=== PATIENT | male | born 1965 | race Native Hawaiian/Other Pacific Islander ===

== ENCOUNTER 2023-04-24 12:14 | Emergency (ER) | payer MEDICAID, SELFPAY ==
--- NOTE | 2023-04-24 12:18 | ED.GENADULT ---
HPI - General Adult General Chief complaint: General Medical Stated complaint: Needs medication refill Time Seen by Provider: 04/24/23 12:33 Source: patient Mode of arrival: ambulatory Limitations: no limitations History of Present Illness HPI narrative: 58 year old male hx of diabetes presents requesting a medication refil for Lantus 18 units at bedtime. Patient tells me he just came from [place] 8 days ago and forgot his lantus at home has all his other diabetic meds. Patient feels a little shakey. No other compalints at this time. Denies nausea, vomiting, abd pain, cp, sob, headache, vision changes, dizziness. Related Data Previous Rx's Medication Instructions Recorded insulin glargine 100 unit/mL 15 unit (0.15 mL) subcut QPM 30 04/24/23 subcutaneous solution (Lantus days #4.5 mL U-100 Insulin) Allergies Allergy/AdvReac Type Severity Reaction Status Date / Time No Known Allergies Allergy Verified 04/24/23 12:20 Review of Systems Review of Systems: Constitutional : No Weight loss, No Fever, No Chills, No Fatigue, No Malaise ENT/Mouth : No sore throat, No Rhinorrhea Eyes: No Eye Pain, No Swelling, No Redness Cardiovascular : No Chest Pain, No SOB, No Dyspnea on Exertion, No Orthopnea, No Edema, No Palpitations Respiratory : No Cough, No Sputum, No Wheezing Gastrointestinal : No Nausea, No Vomiting, No Diarrhea, No Constipation, No abdominal Pain, No Hematochezia, No Melena Genitourinary : No Dysuria, No Urinary Frequency, No Hematuria, Musculoskeletal : No joint pain, No Myalgias, No Joint Swelling Skin : No Skin Lesions, No rash Neuro : No Weakness, No Numbness, No Dizziness, No Headache Psych : No Anxiety/Panic, No Depression All other systems reviewed and are negative Yes all other systems are reviewed and are negative [facility] Past Medical History Attestation statement: The following information was validated with the patient. Source: old records reviewed and nursing notes reviewed Social History Social History Advance Directives: No Advance Directives Information Provided: No Physical Exam ED Vital Signs: Vital Signs - 24 hr 04/24/23 12:21 Temperature 98 F Pulse Rate 69 Respiratory Rate 18 Blood Pressure 118/74 Pulse Oximetry 98 Oxygen Delivery Method Room Air BMI result Body Mass Index 24.7 vss Appearance: Alert.? Oriented X3.? No acute distress.? Head: Normocephalic, atraumatic, no step-offs or deformities Eyes: Pupils equal, round and reactive to light.? CVS: Normal heart rate and rhythm.? Pulses normal.? Respiratory: No respiratory distress.? Breath sounds normal.? Abdomen: Soft and nontender.? Skin: Skin warm and dry.? Normal skin color.? Normal skin turgor.? Extremities: No lower extremity edema.? No calf ttp. 5/5 strength to bilateral upper and lower extremities Neuro: Oriented X 3.? No motor deficit.? No sensory deficit. CN 2-12 intact Course Reevaluation(s) Reevaluation #1: Patients CBC wnl. Chemistry unremarkable. No anion gap or electrolyte abnormalities. Normal beta hydroxybutyrate. Unlikely DKA, HHS. Likely patient just needs his meds. Peak the phone patient's pharmacist from [place] who tells me patient has Lantus 100, 15 units at bedtime. This was confirmed with pharmacy. Educated patient on diagnosis and treatment plan, answered all question, patient verbalizes understanding. At this time patient will be discharged home, advised to return with new or worsening symptoms. Educated on worrisome signs and symptoms and when to return. At this time I feel comfortable discharge home. Time: 13:19 Medical Decision Making Medical Decision Making MDM Narrative: [id number] 58 yo M presents requesting medication refill. PE benign No medical complaints. Normal physical exam Plan- refil meds Differential Diagnosis Differential Diagnoses: The differential diagnosis associated with the presentation includes No medical complaints. Normal physical exam Admission/Observation Consideration of admission/observation: Escalation of care including admission/observation considered Not indicated Lab Data 04/24/23 12:51 04/24/23 12:51 Labs: Lab Results 04/24/23 04/24/23 04/24/23 Range/Units 12:26 12:51 12:51 WBC 3.7 L (4.8-10.8) X10*3/uL RBC 4.93 (4.60-5.80) X10*6/uL Hgb 13.9 L (14.0-18.0) g/dl Hct 41.4 L (42.0-52.0) % MCV 84.0 (80.0-98.0) fL MCH 28.2 (27.0-33.0) pg MCHC 33.6 (31.0-36.0) g/dl RDW 12.6 (11.0-16.0) % Plt Count 160 (160-400) X10*3/uL MPV 9.6 (9.4-12.4) fL Immature Gran % (Auto) 0.0 (0.0-0.4) % Neut % (Auto) 64.8 (45-73) % Lymph % (Auto) 23.1 (20-40) % Gilchrist % (Auto) 9.4 (2-11) % Eos % (Auto) 1.9 (0-4) % Baso % (Auto) 0.8 (0-2) % Lymph # (Auto) 0.9 L (1.2-4.9) X10*3/uL Gilchrist # (Auto) 0.4 (0.1-1.2) X10*3/uL Eos # (Auto) 0.1 (0.0-0.4) X10*3/uL Baso # (Auto) 0.0 (0.0-0.2) X10*3/uL Abs Immat Gran (auto) 0.00 (0.00-0.03) X10*3/uL Absolute Neuts (auto) 2.4 (2.0-8.3) x10*3/uL Absolute Nucleated RBC 0.000 (0.0-0.012) X10*3/uL Nucleated RBC % (auto) 0.0 (0.0-0.2) /100WBC Sodium 138 (135-145) mmol/L Potassium 4.1 (3.3-5.1) mmol/L Chloride 105 (96-108) mmol/L Carbon Dioxide 26 (22-29) mmol/L Anion Gap 11 L (12-20) BUN 10 (9-16) mg/dL Creatinine 0.85 (0.5-1.4) mg/dL Estim Creat Clear Calc 83.3 Estimated GFR > 60 POC Glucose 204 H (60-115) mg/dL Random Glucose 213 H (60-115) mg/dL Calcium 9.6 (8.4-10.2) mg/dL Magnesium 2.0 (1.6-2.6) mg/dL Total Bilirubin 0.4 (0.0-1.0) mg/dL AST 15 (5-37) U/L ALT 17 (0-40) U/L Alkaline Phosphatase 62 (39-117) U/L Total Protein 6.9 (6.5-8.0) g/dL Albumin 4.2 (3.5-5.0) g/dL Beta-Hydroxybutyrate 0.05 (0.02-0.27) mmol/L Core Measures AMI core measures followed: Yes Measure exclusions: not indicated Critical Care Time Critical Care Time Critical Care Time: No Discharge Plan Discharge Clinical Impression: Medication refill, Diabetes Patient Disposition: Home, Self-Care Instructions: Medicine Refill (ED), Diabetes and Nutrition (ED), Type 2 Diabetes Management for Adults (ED) Additional Instructions: Take your medications as prescribed. If you were prescribed antibiotics today, it is important that you take your medication to their entirety, do not skip any doses, do not finish them early. Follow-up with your primary care provider this week. Return to the emergency department with new or worsening symptoms. In case of emergency call 911 Prescriptions: New insulin glargine [Lantus U-100 Insulin] 100 unit/mL solution 15 unit subcut QPM 30 Days Qty: 4.5 3RF Referrals: Physician,Xenia J [Primary Care Provider] - 2 days
[2023-04-24 12:21] VITALS: BP 118/74; PULSE 69; RESP 18; TEMP 36.6; O2SAT 98; BMI 24.7
== END 2023-04-24 13:46 | disposition home or self-care (01) ==
PROVIDERS: Emergency Provider Emergency Medicine Emergency Medical Services
DX: Z76.0 Encounter for issue of repeat prescription (principal); Z91.148 Patient's other noncompliance with medication regimen for other reason; Z79.899 Other long term (current) drug therapy
CPT/HCPCS: 36415; 80053; 82010; 82947; 83735; 85025; 99282; 99283

== ENCOUNTER 2025-02-17 15:25 | Outpatient (AMB) | payer OTHER, SELFPAY ==
[2025-02-17 15:35] VITALS: BP 116/64; PULSE 78; O2SAT 98; BMI 22.0
--- NOTE | 2025-02-17 15:35 | MHC.PC.OV ---
Vital Signs 02/17/25 15:35 Height 5 ft 6 in Weight 136 lb 9.6 oz BMI 22.0 BP 116/64 Blood Pressure Location Lt brachial Position Sitting Pulse 78 Pulse Source Pulse Oximeter Pulse Oximetry (%) 98 Oxygen Delivery Method Room Air Intake Visit Reasons: New Appt New Patient requesitng an PE Intake Note: Patient is a new patient here to establish care. Transferring care from [place]. Medical records have been requested and have not been received. Floorworker Required: Yes Floorworker Language: Engineering Faculty Name: Used tablet: [id number] Jeremias Accompanied by: Self / Same As Patient Allergies No Known Allergies Allergy (Verified 02/17/25 16:12) Medication List - Last Reconciled 02/17/25 by JANN Ann buspirone 10 mg PO DAILY buspirone mg PO clonazepam 1 mg PO TID PRN [id number] 500 mg (Bio-Immunex) 1 cap PO BID emtricitabine-tenofovir alafen 200-25 mg (Descovy) 1 tab PO DAILY insulin glargine (Lantus U-100 Insulin) 15 units (0.15 mL) subcut QPM 30 days linagliptin-metformin 2.5-500 mg (Jentadueto) 1 tab PO BID omega 6-kys-zjc-fish oil 1,000 (120-180) mg (Fish Oil) 1 cap PO TID raltegravir (Isentress) 400 mg PO BID sertraline 50 mg PO DAILY trazodone mg PO BEDTIME PRN Tobacco use date assessed: 02/17/25 Dental Screening Dental Screen Date: 02/17/25 Did you have a dental visit in the last 12 months?: Yes Did you have a dental problem in the last 6 months where you did not have access to dental care?: No Was dental information given to patient?: Patient has dentist HPI New Appt New Patient requesitng an PE HPI Details Previous PCP: Transferred from [place] Last visit: March 2024 Last PE: Same Specialist:spychiatrist every month, therapist weekly or every two weeks, opthalmology in [place]- Diabetic retinopathy, The patient has a dentist and as already seeing them, paving stone installer OBGYN:n/a Past medical history: DM,anxiety, depression, Insomnia, reports that he sleeps in the room of his mother who has alzhiermers, hiv-controlled reports that viral load was undetected last time it was checked, Medications: Family HX: Problem: The patient is a 59-year-old male presenting with diabetic retinopathy. His vision loss has worsened over time and is associated with his diabetes. The patient struggles to find an operations systems specialist locally who accepts his insurance, showing the urgency of his situation. His last exam occurred in [place], where his condition was confirmed. Additionally, he reports ongoing management of anxiety, currently prescribed buspirone 5 mg in the morning and 10 mg at night, with clonazepam used under more acute distress. Side effects noted include dizziness, which dissipates after a short duration post-medication. He recounts significant difficulty sleeping due to nightly disturbances caused by his mother?s Alzheimer?s. He was previously in [place] where he received medical care for HIV and had a history of a large hemorrhoid treated surgically. Constipation remains a problem at times, managed with dietary fiber and supplements. The recurrent anxiety, visual impairment, complex medical history create ongoing challenges. posterior neck mass: talha-firm more that one year. It does not hurt. No drainage came out of it before. No chest pain/sob/heart palpitation or dizziness no abdominal pain/change in bowel habits No urinary symptoms PFSH Medical History HIV (human immunodeficiency virus infection) Diabetes mellitus without complication, with long-term current use of insulin Diabetic retinopathy Surgical History H/O hemorrhoidectomy History of hernia surgery Hx of cholecystectomy Family History Mother COPD (chronic obstructive pulmonary disease) Father Diabetes Alzheimer dementia Blindness Other FH: mental illness Social History Household Members: Family Household Members Other:: Mother and sister Housing: House Are you a primary family day care provider to a significant other at home: Yes Alcohol intake: never Patient Tobacco Use Status: Former Tobacco user Tobacco use type: Cigarette e-Cigarette/Vaping Use: Never Used Substance Use Type: Marijuana service: No Current occupational status: employed Current occupation: UNDERWRITER- [employer] Cognitive needs: No Hearing needs: No Vision needs: Yes (Glasses) Questionnaire PHQ-9 Over the last 2 weeks, how often have you been bothered by any of the following problems? 1. Little interest or pleasure in doing things: more than half the days 2. Feeling down, depressed, or hopeless: more than half the days 3. Trouble falling or staying asleep, or sleeping too much: nearly every day 4. Feeling tired or having little energy: more than half the days 5. Poor appetite or overeating: not at all 6. Feeling bad about yourself - or that you are a failure or have let yourself or your family down: nearly every day 7. Trouble concentrating on things, such as reading the newspaper or watching television: nearly every day 8. Moving or speaking so slowly that other people could have noticed. Or the opposite - being so fidgety or restless that you have been moving around a lot more than usual: not at all 9. Thoughts that you would be better off or of hurting yourself in some way: not at all Total score: 15 Depression Screening Interpretation: Positive Depression Screening Done: Yes 50707 - PHQ-9 Billing: Yes Source: Developed by Drs. Paulino Nunez, Enedina Morales, Ashvin Mascorro and colleagues, with an educational alysia from [employer]. Thrive Questionnaire Date Thrive assessed: 02/17/25 I am a: Patient What is your living situation today?: I have a steady place to live Within the past 12 months, did the food you bought not last and you didn't have the money to get more?: Never true Within the past 12 months, did you worry whether your food would run out before you got money to buy more?: Never true Do you have trouble paying for medicines?: No Do you have trouble getting transportation to medical appointments?: No Do you have trouble paying your heating and electricity bill?: No Do you have trouble taking care of your child, family member or friend?: No Do you have trouble with day-to-day activities such as bathing, preparing meals, shopping, managing finances, etc.?: Yes Are you currently unemployed and looking for a job?: No Are you interested in more education?: No Please select the resources that you would like help with: Care for elder or disabled and Daily support Currently or been in a relationship where the following occur: No concerns reported THRIVE Score: 0 AUDIT C Alcohol Use Questionnaire (AUDIT-C) 1. How often do you have a drink containing alcohol?: Never 3. How often do you have six or more drinks on one occasion?: Never Total Score: 0 Score Reviewed/Action Taken: No JENN-7 AMB Questionnaire JENN-7 Date JENN - 7 assessed: 02/17/25 Feeling nervous, anxious, or on edge: 3 = Nearly every day Not being able to stop or control worryin = Nearly every day Worrying too much about different things: 3 = Nearly every day Trouble relaxin = Nearly every day Being so restless that it is hard to sit still: 3 = Nearly every day Becoming easily annoyed or irritable: 0 = Not at all Feeling afraid as if something awful might happen: 0 = Not at all Total JENN-7 score (0-4 normal; 5-9 mild; 10-14 moderate; 15-21 severe): 15 Source: Developed by Drs. Paulino Nunez, Enedina Morales, Ashvin Mascorro and colleagues, with an educational alysia from [employer]. JENN-7 Assessment Billing JENN-7 Assessment Tool: JENN-7 Assessment 66251 Review of Systems Const Details: - Eyes: Reports vision loss. - Neurological: Denies major disorientation, confusion. - Psychiatric: Reports anxiety, insomnia. - Cardiovascular: Denies chest pain, heart palpitations. - Respiratory: Denies shortness of breath. - Gastrointestinal: Reports history of hemorrhoids, occasional constipation. - Genitourinary: Reports normal urinary function. Denies headache(s) Eyes Reports change in vision (Decreasing) and Denies loss of vision ENT Denies vertigo, Denies dizziness, Denies headache(s) and Denies sore throat Card Denies chest pain, Denies leg edema and Denies lightheadedness Resp Denies cough, Denies hemoptysis and Denies wheezing GI Denies abdominal pain, Denies melena, Reports constipation (Occasional), Denies diarrhea, Denies vomiting and Reports other (History of hemorrhoids) Denies dysuria, Denies urinary frequency and Denies urinary urgency Musc Denies arthralgias, Denies joint swelling, Denies numbness and Denies tingling Neuro Denies Abnormal speech present, Denies behavioral changes, Denies vertigo, Denies dizziness, Denies headache(s), Denies loss of vision, Denies memory loss, Denies numbness and Denies tingling Psych Reports anxiety, Denies behavioral changes, Denies depression, Denies memory loss, Denies panic attacks and Reports other (Insomnia) Aquilino/Lymph Denies easy bleeding and Denies easy bruising Aller/Immun Denies wheezing Physical exam (Primary Care) Vital Signs: Last Vital Signs Pulse 78 02/17/25 15:35 BP 116/64 02/17/25 15:35 Pulse Ox 98 02/17/25 15:35 Oxygen Delivery Method Room Air 02/17/25 15:35 BMI result Body Mass Index 22.0 Tobacco/Smoking Status: Tobacco use Status Tobacco use date assessed 02/17/25 02/17/25 15:39 Patient Tobacco Use Status Former Tobacco user 02/17/25 16:11 Tobacco use type Cigarette 02/17/25 16:11 e-Cigarette/Vaping Use Never Used 02/17/25 16:11 PHQ-9: PHQ-9 Score PHQ-9: Total score 15 02/22/25 08:11 Depression Screening Interpretation: Positive Thrive Assessment: Date of Thrive Assessment Date Thrive assessed 02/17/25 02/17/25 16:11 Currently or been in a relationship where the following occur: No concerns reported Const General: healthy appearing, no acute distress, alert and awake Nutritional Appearance: well nourished Orientation/consciousness: oriented to person, oriented to place and oriented to time [facility] Ears: TM's normal bilaterally General nose exam: Normal nasal mucous membranes and turbinates present Eyes Conjunctivae: conjunctivae normal Sclerae: sclerae normal Pupils: Equal, round and reactive pupils present Neck Neck: Yes no lymphadenopathy, Yes no JVD and Yes other (Posterior neck swelling) Thyroid: Thyroid normal Carotids: no bruits Resp Effort & Inspection: normal respiratory effort and not tachypneic Auscultation: no crackles, no rales, no rhonchi and no wheezes Cardio Rate: regular rate Rhythm: regular rhythm Heart sounds: no murmurs and normal S1 and S2 GI Palpation (GI): Soft to palpation, nontender, no hepatomegaly and no splenomegaly Auscultation: normal bowel sounds Skin General skin exam: no rashes or lesions noted and dry skin Neuro General: oriented to person, oriented to place and oriented to time Cranial nerves: Yes Equal, round and reactive pupils present Speech: No Abnormal speech present Gait exam (Neuro): Normal gait present Motor exam (neuro): no tremor noted Extrem Right upper extremity: full ROM Left upper extremity: full ROM Right lower extremity: full ROM; no edema Left lower extremity: full ROM; no edema Psych Mental Status: mental status grossly normal Speech and movement: Normal speech and movement present Affect: normal affect Attitude: cooperative Thought process: Normal thought process present Coding Level of Care Code New Pt Level 4 (71530) Diagnoses Localized swelling, mass and lump, neck R22.1 Tuberculosis screening Z11.1 Moderate nonproliferative diabetic retinopathy of both eyes associated with type 2 diabetes mellitus, macular edema presence unspecified E11.3393 Diabetes mellitus type: type 2 Diabetic retinopathy severity: with moderate nonproliferative retinopathy Diabetes mellitus macular edema: macular edema presence unspecified Laterality: bilateral Type 2 diabetes mellitus without complication, with long-term current use of insulin E11.9; Z79.4 Diabetes mellitus type: type 2 Asymptomatic HIV infection, with no history of HIV-related illness Z21 HIV symptom status: asymptomatic, with no history of HIV-related illness Additional Codes JENN-7 Assessment Billing - JENN-7 Assessment Tool: JENN-7 Assessment 05694 ([id number]) PHQ-9 - 35641 - PHQ-9 Billing: Yes ([id number]) Time Spent (min) 41 Assessment & Plan Assessment & Plan (1) Localized swelling, mass and lump, neck: Code(s): R22.1 - Localized swelling, mass and lump, neck Category: Medical Plan: Ultrasound ordered to further evaluate (2) Tuberculosis screening: Code(s): Z11.1 - Encounter for screening for respiratory tuberculosis Category: Medical Plan: T spot test ordered (3) Diabetic retinopathy: Code(s): E11.319 - Type 2 diabetes mellitus with unspecified diabetic retinopathy without macular edema Category: Medical Qualifiers: Diabetes mellitus type: type 2 Diabetic retinopathy severity: with moderate nonproliferative retinopathy Diabetes mellitus macular edema: macular edema presence unspecified Laterality: bilateral Qualified Code(s): E11.3393 - Type 2 diabetes mellitus with moderate nonproliferative diabetic retinopathy without macular edema, bilateral Plan: Ophthalmology referral placed (4) Diabetes mellitus without complication, with long-term current use of insulin: Code(s): E11.9 - Type 2 diabetes mellitus without complications; Z79.4 - terminal carman (current) use of insulin Category: Medical Qualifiers: Diabetes mellitus type: type 2 Qualified Code(s): E11.9 - Type 2 diabetes mellitus without complications; Z79.4 - longterm (current) use of insulin Plan: Reinforced diet low in sugar/carbohydrate and activity as tolerated Continue Lantus 15 units q.p.m., Jentadueto 1 tab BID Monitor blood sugar frequently (5) HIV (human immunodeficiency virus infection): Code(s): Z21 - Asymptomatic human immunodeficiency virus [HIV] infection status Category: Medical Qualifiers: HIV symptom status: asymptomatic, with no history of HIV-related illness Qualified Code(s): Z21 - Asymptomatic human immunodeficiency virus [HIV] infection status Plan: Reports that the last time his levels were checked, they were not detected. Will order viral load and refer the patient to ID Plan All requested medications were refilled per request Orders: Orders Complete Blood Count Auto Diff 02/22/25 Z00.00 - Encounter for general adult medical examination without abnormal findings, Z21 - Asymptomatic human immunodeficiency virus [HIV] infection status, E11.9 - Type 2 diabetes mellitus without complications, Z79.4 - terminal carman (current) use of insulin, E11.319 - Type 2 diabetes mellitus with unspecified diabetic retinopathy without macular edema, Z11.1 - Encounter for screening for respiratory tuberculosis UA CC w/rflx Micro + Cult 02/22/25 Z00.00 - Encounter for general adult medical examination without abnormal findings, Z21 - Asymptomatic human immunodeficiency virus [HIV] infection status, E11.9 - Type 2 diabetes mellitus without complications, Z79.4 - longterm (current) use of insulin, E11.319 - Type 2 diabetes mellitus with unspecified diabetic retinopathy without macular edema, Z11.1 - Encounter for screening for respiratory tuberculosis Free T4 (Free Thyroxine) 02/22/25 Z00.00 - Encounter for general adult medical examination without abnormal findings, Z21 - Asymptomatic human immunodeficiency virus [HIV] infection status, E11.9 - Type 2 diabetes mellitus without complications, Z79.4 - terminal carman (current) use of insulin, E11.319 - Type 2 diabetes mellitus with unspecified diabetic retinopathy without macular edema, Z11.1 - Encounter for screening for respiratory tuberculosis Vitamin D 25-OH Total 02/22/25 Z00.00 - Encounter for general adult medical examination without abnormal findings, Z21 - Asymptomatic human immunodeficiency virus [HIV] infection status, E11.9 - Type 2 diabetes mellitus without complications, Z79.4 - terminal carman (current) use of insulin, E11.319 - Type 2 diabetes mellitus with unspecified diabetic retinopathy without macular edema, Z11.1 - Encounter for screening for respiratory tuberculosis Hemoglobin A1c 02/22/25 Z00.00 - Encounter for general adult medical examination without abnormal findings, Z21 - Asymptomatic human immunodeficiency virus [HIV] infection status, E11.9 - Type 2 diabetes mellitus without complications, Z79.4 - longterm (current) use of insulin, E11.319 - Type 2 diabetes mellitus with unspecified diabetic retinopathy without macular edema, Z11.1 - Encounter for screening for respiratory tuberculosis HIV-1 RNA QN PCR Expanded 02/22/25 Z21 - Asymptomatic human immunodeficiency virus [HIV] infection status Comprehensive [place]. Panel Fast 02/22/25 Z00.00 - Encounter for general adult medical examination without abnormal findings, Z21 - Asymptomatic human immunodeficiency virus [HIV] infection status, E11.9 - Type 2 diabetes mellitus without complications, Z79.4 - longterm (current) use of insulin, E11.319 - Type 2 diabetes mellitus with unspecified diabetic retinopathy without macular edema, Z11.1 - Encounter for screening for respiratory tuberculosis Lipid Panel 02/22/25 Z00.00 - Encounter for general adult medical examination without abnormal findings, Z21 - Asymptomatic human immunodeficiency virus [HIV] infection status, E11.9 - Type 2 diabetes mellitus without complications, Z79.4 - terminal carman (current) use of insulin, E11.319 - Type 2 diabetes mellitus with unspecified diabetic retinopathy without macular edema, Z11.1 - Encounter for screening for respiratory tuberculosis TSH reflex Free T4 02/22/25 Z00.00 - Encounter for general adult medical examination without abnormal findings, Z21 - Asymptomatic human immunodeficiency virus [HIV] infection status, E11.9 - Type 2 diabetes mellitus without complications, Z79.4 - longterm (current) use of insulin, E11.319 - Type 2 diabetes mellitus with unspecified diabetic retinopathy without macular edema, Z11.1 - Encounter for screening for respiratory tuberculosis T Spot TB 05/07/25 Z00.00 - Encounter for general adult medical examination without abnormal findings, Z21 - Asymptomatic human immunodeficiency virus [HIV] infection status, E11.9 - Type 2 diabetes mellitus without complications, Z79.4 - longterm (current) use of insulin, E11.319 - Type 2 diabetes mellitus with unspecified diabetic retinopathy without macular edema, Z11.1 - Encounter for screening for respiratory tuberculosis Glucose Fasting 02/22/25 Z00.00 - Encounter for general adult medical examination without abnormal findings, Z21 - Asymptomatic human immunodeficiency virus [HIV] infection status, E11.9 - Type 2 diabetes mellitus without complications, Z79.4 - longterm (current) use of insulin, E11.319 - Type 2 diabetes mellitus with unspecified diabetic retinopathy without macular edema, Z11.1 - Encounter for screening for respiratory tuberculosis Referrals Infectious Disease Referral Z21 - Asymptomatic human immunodeficiency virus [HIV] infection status Medications: New linagliptin-metformin 2.5-500 mg (Jentadueto) 1 tab PO BID 90 tabs 3RF Patient Instructions: The patient to return in 3 months
== END 2025-02-17 17:00 | disposition home or self-care (01) ==
DX: R22.1 Localized swelling, mass and lump, neck (principal); Z11.1 Encounter for screening for respiratory tuberculosis; E11.3393 Type 2 diabetes mellitus with moderate nonproliferative diabetic retinopathy without macular edema, bilateral; Z79.4 Long term (current) use of insulin; Z21 Asymptomatic human immunodeficiency virus [HIV] infection status

== ENCOUNTER → 2025-02-17 15:25 | Outpatient (BNVA) | payer OTHER, SELFPAY | DX: E11.3393 Type 2 diabetes mellitus with moderate nonproliferative diabetic retinopathy without macular edema, bilateral (principal); F41.9 Anxiety disorder, unspecified; F33.2 Major depressive disorder, recurrent severe without psychotic features; G47.00 Insomnia, unspecified; R22.1 Localized swelling, mass and lump, neck; Z11.1 Encounter for screening for respiratory tuberculosis; Z21 Asymptomatic human immunodeficiency virus [HIV] infection status; Z79.4 Long term (current) use of insulin | CPT/HCPCS: 96127; 99202 ==

== ENCOUNTER 2025-02-22 08:31 | Outpatient (REF) | payer OTHER, SELFPAY ==
[2025-02-22 08:54] LABS: MANUAL DIFF FLAG NO
[2025-02-22 09:04] LABS: Basophils Absolute Auto 0.1 X10*3/uL (0.0-0.2); Eosinophils Absolute Auto 0.1 X10*3/uL (0.0-0.4); Eosinophils Percent Auto 2.3 % (0-4); Hematocrit 44.4 % (42.0-52.0); Hemoglobin 15.4 g/dl (14.0-18.0); Imm Gran Abs Auto 0.02 X10*3/uL (0.00-0.03); Imm Gran Pct Auto 0.3 % (0.0-0.4); Lymphocytes Absolute Auto 1.6 X10*3/uL (1.2-4.9); Mean Corpuscular HGB Conc 34.7 g/dl (31.0-36.0); Mean Corpuscular Hemoglobin 29.6 pg (27.0-33.0); Mean Corpuscular Volume 85.4 fL (80.0-98.0); Mean Platelet Volume 9.3 fL (9.4-12.4); Monocytes Absolute Auto 0.5 X10*3/uL (0.1-1.2); Monocytes Percent Auto 8.2 % (2-11); Neutrophils Absolute Auto 3.4 x10*3/uL (2.0-8.3); Neutrophils Percent Auto 60.2 % (45-73); Platelet Count 185 X10*3/uL (160-400); Red Cell Distribution Width 12.4 % (11.0-16.0); White Blood Count 5.7 X10*3/uL (4.8-10.8)
[2025-02-22 09:12] LABS: Appearance Urine Clear; Color Urine Yellow; Glucose Urine UA Negative (Negative); Leukocyte Esterase Urine Negative (Negative); Nitrite Urine Negative (Negative); PH 6.5 (5.0-9.0); Urine Blood Negative (Negative); Urine Ketones Trace mg/dL (Negative); Urine Protein Negative (Neg-Trace)
[2025-02-22 09:53] LABS: Alanine Aminotransferase 33 U/L (0-40); Albumin Level 4.3 g/dL (3.5-5.0); Alkaline Phosphatase 83 U/L (39-117); Anion Gap 11 (12-20); Aspartate Amino Transferase 22 U/L (5-37); Bilirubin Total 0.2 mg/dL (0.0-1.0); Blood Urea Nitrogen 21 mg/dL (9-16); Calcium 8.9 mg/dL (8.4-10.2); Carbon Dioxide 26 mmol/L (22-29); Chloride 106 mmol/L (96-108); Cholesterol 147 mg/dL (<200); Estimated Glomerular Filt Rate > 60; Glucose Fasting 160 mg/dL (60-99); HDL Cholesterol 35 mg/dL (>40); LDL Cholesterol Calculated 51 mg/dL (<100); Potassium 3.5 mmol/L (3.3-5.1); Sodium 139 mmol/L (135-145); Total Protein 6.9 g/dL (6.5-8.0); Triglycerides 309 mg/dL (<150)
[2025-02-22 09:54] LABS: Estimated Average Glucose 134 mg/dL; Hemoglobin A1C 181.5846 umol/L; Hemoglobin A1c % 6.3 % (<6.0); Total Hemoglobin (HGBA1C) 4008.4097 umol/L
[2025-02-22 09:59] LABS: Free T4 (Free Thyroxine) 0.73 ng/dL (0.71-1.85); TSH reflex Free T4 1.79 uIU/mL (0.32-4.0)
[2025-02-24 13:38] LABS: HIV RNA PCR Qn Copies NOT DETECTED copies/mL (NOT DETECTED); HIV RNA PCR Qn Log Copies NOT DETECTED (NOT DETECTED)
[2025-02-25 09:54] LABS: TS Negative Control Passed; TS Panel A 0; TS Panel B 0; TS Positive Control Passed; TSpotTB Negative (Negative)
== END 2025-02-22 08:32 | disposition home or self-care (01) ==
LOC: HO.LAB 08:31
DX: Z00.00 Encounter for general adult medical examination without abnormal findings (principal); Z21 Asymptomatic human immunodeficiency virus [HIV] infection status; E11.9 Type 2 diabetes mellitus without complications; Z79.4 Long term (current) use of insulin; E11.319 Type 2 diabetes mellitus with unspecified diabetic retinopathy without macular edema; Z11.1 Encounter for screening for respiratory tuberculosis
CPT/HCPCS: 36415; 80053; 80061; 81003; 82306; 83036; 84439; 84443; 85025; 86481; 87536

== ENCOUNTER 2025-03-01 14:16 | Outpatient (AMB) | payer OTHER, SELFPAY ==
--- NOTE | 2025-03-01 14:14 | MHC.OFFVIS ---
Vital Signs 03/01/25 14:22 Height 5 ft 6 in Pulse 80 Pulse Source Pulse Oximeter Pulse Oximetry (%) 98 Oxygen Delivery Method Room Air Intake Visit Reasons: Asymptomatic virus [HIV] infection status Allergies No Known Allergies Allergy (Verified 03/01/25 14:31) HPI HPI Asymptomatic virus [HIV] infection status: Details: He presents as new ID referral for HIV care. He was previously seen in [place] and moved here with his mother who he lives with and takes care of with no break in two years at least. He reports being diagnosed with HIV 26 years ago. He says he was not IVDU and was vague about sexual history. He denies OIs or STIs but doesnt come with records from ID. He doesnt know eleazar CD4 count. He has DM for years' HIV viral load is undetectable on and T spot negative but dont see Hep C, or CD4 count He doesnt recall having syphils or STI check. 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 at home: Yes Alcohol intake: never Patient Tobacco Use Status: Former Tobacco user Tobacco use type: Cigarette e-Cigarette/Vaping Use: Never Used Substance Use Type: Marijuana service: No Current occupational status: employed Current occupation: IRONING WORKER- [employer] Cognitive needs: No Hearing needs: No Vision needs: Yes (Glasses) Review of Systems Const All systems reviewed & are unremarkable except as noted in HPI and below Physical Exam Vital Signs: Last Vital Signs Pulse 80 03/01/25 14:22 Pulse Ox 98 03/01/25 14:22 Oxygen Delivery Method Room Air 03/01/25 14:22 Const General: cooperative Orientation/consciousness: patient oriented x3 HEENT Head: Yes normal to inspection Mouth: Normal oral and palatal mucosa present Eyes General: appearance normal, both eyes and all related structures Pupils: Equal, round and reactive pupils present Resp Effort & Inspection: normal respiratory effort Cardio Rate: regular rate Rhythm: regular rhythm GI Palpation (GI): Soft to palpation and nontender General: Yes no CVA tenderness Back/Spine/Pelvis Back: no CVA tenderness Skin General skin exam: no rashes or lesions noted Neuro General: patient oriented x3 Cranial nerves: Yes CN's II-XII intact bilaterally and Yes Equal, round and reactive pupils present Extrem General: Yes normal to inspection Psych Appearance: grossly normal Assessment & Plan Assessment & Plan (1) HIV (human immunodeficiency virus infection): Comment: He is doing well with viral load undetectable. Code(s): Z21 - Asymptomatic human immunodeficiency virus [HIV] infection status Category: Medical Qualifiers: HIV symptom status: asymptomatic, with no history of HIV-related illness Qualified Code(s): Z21 - Asymptomatic human immunodeficiency virus [HIV] infection status Plan: Continue raltegravir and Descovy for now and refills give. Needs anal Pap. Syphilis testing See back in four months. Check lump on nec within (2) Localized swelling, mass and lump, neck: Code(s): R22.1 - Localized swelling, mass and lump, neck Category: Medical Plan na Medications: New emtricitabine-tenofovir alafen 200-25 mg (Descovy) 1 tab PO DAILY 30 days 30 tabs 3RF raltegravir 400 mg PO BID 30 days 60 tabs 3RF Coding Level of Care Code New Pt Level 3 (73496) Diagnoses Asymptomatic HIV infection, with no history of HIV-related illness Z21 HIV symptom status: asymptomatic, with no history of HIV-related illness Localized swelling, mass and lump, neck R22.1
[2025-03-01 14:22] VITALS: PULSE 80; O2SAT 98
== END 2025-03-01 15:10 | disposition home or self-care (01) ==
LOC: HO.HID 14:16
PROVIDERS: Visit Provider Internal Medicine
DX: Z21 Asymptomatic human immunodeficiency virus [HIV] infection status (principal); R22.1 Localized swelling, mass and lump, neck
CPT/HCPCS: 99203

== ENCOUNTER → 2025-03-01 14:16 | Outpatient (BNVA) | payer OTHER, SELFPAY | PROVIDERS: Visit Provider Internal Medicine | DX: R22.1 Localized swelling, mass and lump, neck (principal); Z21 Asymptomatic human immunodeficiency virus [HIV] infection status | CPT/HCPCS: 99202 ==

== ENCOUNTER 2025-03-23 11:03 | Outpatient (REF) | payer OTHER, SELFPAY ==
--- NOTE | ~2025-03-23 | US_ITS ---
CLINICAL HISTORY: R22.1 - Localized swelling, mass and lump, neck --- Additional Notes or Special Ins tructions: posterior neck semi-firm mass Ultrasound of the soft tissues of the posterior neck on the left. COMPARISON: None FINDINGS: Dedicated ultrasound imaging was performed in the region of concern along the posterior left neck. In the region of concern there is a hypoechoic well-defined lesion within the subcutaneous soft tissues measuring 0.5 x 0.5 x 0.4 cm. There is posterior acoustic enhancement and no appreciable internal flow by Doppler imaging. Along the lateral aspect of the lesion there is a thin tract which appears to extend to the skin surface. No fatty hilum. IMPRESSION: 1. Hypoechoic avascular subcutaneous lesion along the posterior left neck most likely representing a sebaceous cyst (favored) versus atypical lymph node. No aggressive features. This document has been electronically signed by: Moncho Milton MD on 03/23/2025 15:42:37
== END 2025-03-23 11:04 | disposition home or self-care (01) ==
LOC: HO.HMGCX 11:03
DX: R22.1 Localized swelling, mass and lump, neck (principal)
CPT/HCPCS: 76536

== ENCOUNTER → 2025-03-23 11:07 | Outpatient (BNV) | payer OTHER, SELFPAY | PROVIDERS: Visit Provider Radiology Diagnostic Radiology | DX: R22.1 Localized swelling, mass and lump, neck (principal) | CPT/HCPCS: 76536 ==

== ENCOUNTER 2025-05-23 15:05 | Outpatient (AMB) | payer OTHER, SELFPAY ==
[2025-05-23 15:25] VITALS: BP 124/62; PULSE 75; RESP 18; TEMP 36.3; O2SAT 97; BMI 22.8
--- NOTE | 2025-05-23 15:25 | MHC.PC.OV ---
Vital Signs 05/23/25 15:25 Height 5 ft 6 in Weight 141 lb BMI 22.8 BP 124/62 Blood Pressure Location Lt brachial Position Sitting Respiration 18 Pulse 75 Pulse Source Pulse Oximeter Temp 97.3 F Temp Source Temporal Artery Scan Pulse Oximetry (%) 97 Oxygen Delivery Method Room Air Intake Visit Reasons: lab concerns (cholesterol) Child Development Instructor Required: Yes Child Development Instructor Name: [email or web address] [id number]/Dawsoni Accompanied by: Self / Same As Patient Allergies No Known Allergies Allergy (Verified 06/02/25 15:32) Medication List - Last Reconciled 05/23/25 by JANN Ann acarbose 50 mg PO TID buspirone 10 mg PO DAILY buspirone mg PO cholecalciferol (vitamin D3) 50 mcg PO DAILY clonazepam 1 mg PO TID PRN [id number] 500 mg (Bio-Immunex) 1 cap PO BID emtricitabine-tenofovir alafen 200-25 mg (Descovy) 1 tab PO DAILY 30 days emtricitabine-tenofovir alafen 200-25 mg (Descovy) 1 tab PO DAILY fenofibrate 54 mg PO DAILY insulin glargine (Lantus U-100 Insulin) 15 units (0.15 mL) subcut QPM 30 days linagliptin-metformin 2.5-500 mg (Jentadueto) 1 tab PO BID metformin 500 mg PO BID omega 4-xdj-tiw-fish oil 1,000 (120-180) mg (Fish Oil) 1 cap PO TID omega-3 fatty acids 1,000 mg PO DAILY raltegravir 400 mg PO BID 30 days raltegravir (Isentress) 400 mg PO BID 3 months sertraline 50 mg PO DAILY trazodone mg PO BEDTIME PRN Tobacco use date assessed: 05/23/25 Dental Screening Dental Screen Date: 05/23/25 Did you have a dental visit in the last 12 months?: Yes Did you have a dental problem in the last 6 months where you did not have access to dental care?: No Was dental information given to patient?: Patient has dentist HPI lab concerns (cholesterol) HPI Details The patient is a 60-year-old male presenting with concerns about his cholesterol levels. The patient reports being informed that his cholesterol (particularly Triglyceride) levels were very high, prompting the initiation of fenofibrate. However, he experienced significant gastrointestinal side effects, including severe stomach pain and mucous-like evacuations, loose stool, unable to make it to the bathroom in time, which led him to discontinue the medication after three days. The patient also mentioned issues with medication coverage, specifically with Bioimmunax and S[place]ache-3 supplements, due to insurance not covering these costs. He expressed concern about the high cost of Bioimmunax, which is approximately $100, while [place]-3 is more affordable at $7. Plans to help the patient find an equivalent option that is affordable. COUNTS INCLUDE 234 BEDS AT THE [facility] Medical History (Updated 06/03/25 @ 20:15 by JANN Ann) Depression Anxiety HIV (human immunodeficiency virus infection) Diabetes mellitus without complication, with long-term current use of insulin Diabetic retinopathy Surgical History H/O hemorrhoidectomy History of hernia surgery Hx of cholecystectomy Family History Mother COPD (chronic obstructive pulmonary disease) Father Diabetes Alzheimer dementia Blindness Other FH: mental illness Social History Household Members: Family Household Members Other:: Mother and sister Housing: House 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 1. Little interest or pleasure in doing things: several days 2. Feeling down, depressed, or hopeless: several days 3. Trouble falling or staying asleep, or sleeping too much: several days 4. Feeling tired or having little energy: several days 5. Poor appetite or overeating: several days 6. Feeling bad about yourself - or that you are a failure or have let yourself or your family down: several days 7. Trouble concentrating on things, such as reading the newspaper or watching television: several days 8. Moving or speaking so slowly that other people could have noticed. Or the opposite - being so fidgety or restless that you have been moving around a lot more than usual: several days 9. Thoughts that you would be better off or of hurting yourself in some way: not at all Total score: 8 Source: Developed by Drs. Paulino Nunez, Enedina Morales, Ashvin Mascorro and colleagues, with an educational alysia from [employer]. Thrive Questionnaire Date Thrive assessed: 05/23/25 I am a: Patient What is your living situation today?: I have a steady place to live Within the past 12 months, did the food you bought not last and you didn't have the money to get more?: Sometimes True Within the past 12 months, did you worry whether your food would run out before you got money to buy more?: Sometimes True Do you have trouble paying for medicines?: No Do you have trouble getting transportation to medical appointments?: I choose not to answer this question Do you have trouble paying your heating and electricity bill?: I choose not to answer this question Do you have trouble taking care of your child, family member or friend?: No Do you have trouble with day-to-day activities such as bathing, preparing meals, shopping, managing finances, etc.?: No Are you currently unemployed and looking for a job?: I choose not to answer this question Are you interested in more education?: Yes THRIVE Score: 2 AUDIT C Alcohol Use Questionnaire (AUDIT-C) 1. How often do you have a drink containing alcohol?: Never 3. How often do you have six or more drinks on one occasion?: Never Total Score: 0 Score Reviewed/Action Taken: No JENN-7 AMB Questionnaire JENN-7 Date JENN - 7 assessed: 05/23/25 Feeling nervous, anxious, or on edge: 3 = Nearly every day Not being able to stop or control worryin = Nearly every day Worrying too much about different things: 3 = Nearly every day Trouble relaxin = Nearly every day Being so restless that it is hard to sit still: 3 = Nearly every day Becoming easily annoyed or irritable: 0 = Not at all Feeling afraid as if something awful might happen: 0 = Not at all Total JENN-7 score (0-4 normal; 5-9 mild; 10-14 moderate; 15-21 severe): 15 Source: Developed by Drs. Paulino Nunez, Enedina Morales, Ashvin Mascorro and colleagues, with an educational alysia from [employer]. Review of Systems Const Denies body aches, Denies chills, Denies fever(s), Denies headache(s) and Denies poor appetite Eyes Reports no additional complaints ENT Denies dysphagia, Denies dizziness, Denies headache(s) and Denies odynophagia Card Denies chest pain, Denies syncope, Denies edema, Denies irregular heart rhythm, Denies lightheadedness and Denies dyspnea Resp Denies cough and Denies dyspnea GI Denies abdominal pain, Denies constipation, Denies dysphagia, Reports fecal incontinence (resolved after stopping fenofibrate), Denies diarrhea, Reports loose stools (resolved after stopping fenofibrate), Denies nausea, Denies odynophagia and Denies vomiting Reports no additional complaints Musc Reports no additional complaints and Denies abnormal gait Skin/Breast Reports system reviewed and no additional complaints, except as documented Neuro Denies abnormal gait, Denies dizziness, Denies syncope and Denies headache(s) Psych Reports no additional complaints Physical exam (Primary Care) Vital Signs: Last Vital Signs Temp 97.3 F 05/23/25 15:25 Pulse 75 05/23/25 15:25 Resp 18 05/23/25 15:25 BP 124/62 05/23/25 15:25 Pulse Ox 97 05/23/25 15:25 Oxygen Delivery Method Room Air 05/23/25 15:25 BMI result Body Mass Index 22.8 Tobacco/Smoking Status: Tobacco use Status Tobacco use date assessed 05/23/25 05/23/25 15:26 Patient Tobacco Use Status Former Tobacco user 05/23/25 15:26 Tobacco use type Cigarette 05/23/25 15:26 e-Cigarette/Vaping Use Never Used 05/23/25 15:26 PHQ-9: PHQ-9 Score PHQ-9: Total score 8 05/23/25 16:12 Thrive Assessment: Date of Thrive Assessment Date Thrive assessed 05/23/25 05/23/25 15:26 Const General: cooperative, healthy appearing, comfortable and no acute distress Orientation/consciousness: patient oriented x3 HENCO Head: Yes normocephalic Ears: hearing grossly normal bilaterally General nose exam: Normal external nose present Eyes General: appearance normal, both eyes and all related structures Conjunctivae: conjunctivae normal Neck Neck: Yes full ROM and Yes no lymphadenopathy Resp Effort & Inspection: normal respiratory effort Auscultation: clear to auscultation bilaterally, no crackles, no rales, no rhonchi and no wheezes Cardio Rate: regular rate Rhythm: regular rhythm Skin General skin exam: no rashes or lesions noted Neuro General: patient oriented x3 Gait exam (Neuro): Normal gait present Extrem General: Yes normal to inspection, Yes full ROM and No edema Psych Affect: normal affect Attitude: cooperative Insight: Good insight present (Psych) Judgement: Good judgement present (Psych) Coding Level of Care Code Est Pt Level 2 (18614) Diagnoses Mixed hyperlipidemia E78.2 Hyperlipidemia type: mixed hyperlipidemia Loose stools R19.5 Time Spent (min) 28 Assessment & Plan Assessment & Plan (1) HLD (hyperlipidemia): Code(s): E78.5 - Hyperlipidemia, unspecified Category: Medical Qualifiers: Hyperlipidemia type: mixed hyperlipidemia Qualified Code(s): E78.2 - Mixed hyperlipidemia Plan: We will repeat labs to re-evaluate cholesterol and make a decision on what medication to try the patient on. (2) Loose stools: Code(s): R19.5 - Other fecal abnormalities Category: Medical Plan: Resolved after stopping fenofibrate. No other intervention needed Plan The plan includes rechecking the patient's laboratory results to assess current cholesterol levels and determine the next steps in management. Additionally, there will be an investigation into alternative medications or supplements that could replace Bioimmunax, considering the patient's insurance coverage issues. The patient is advised to follow up with the infectious disease department to explore potential equivalent medications and to ensure comprehensive care. The patient is also encouraged to complete the blood work before the next appointment to allow for a thorough review of the results. Patient was informed and verbally consented to the use of an ambient scribe for clinic note documentation during this visit. Orders: Orders Vitamin D 25-OH Total 05/26/25 E11.9 - Type 2 diabetes mellitus without complications, Z79.4 - computer terminal operator (current) use of insulin, R22.1 - Localized swelling, mass and lump, neck, E11.3393 - Type 2 diabetes mellitus with moderate nonproliferative diabetic retinopathy without macular edema, bilateral, Z21 - Asymptomatic human immunodeficiency virus [HIV] infection status Comprehensive [place]. Panel Fast 05/26/25 E11.9 - Type 2 diabetes mellitus without complications, Z79.4 - computer terminal operator (current) use of insulin, R22.1 - Localized swelling, mass and lump, neck, E11.3393 - Type 2 diabetes mellitus with moderate nonproliferative diabetic retinopathy without macular edema, bilateral, Z21 - Asymptomatic human immunodeficiency virus [HIV] infection status Lipid Panel 05/26/25 E11.9 - Type 2 diabetes mellitus without complications, Z79.4 - alf (current) use of insulin, R22.1 - Localized swelling, mass and lump, neck, E11.3393 - Type 2 diabetes mellitus with moderate nonproliferative diabetic retinopathy without macular edema, bilateral, Z21 - Asymptomatic human immunodeficiency virus [HIV] infection status UA CC w/rflx Micro + Cult 05/26/25 E11.9 - Type 2 diabetes mellitus without complications, Z79.4 - computer terminal operator (current) use of insulin, R22.1 - Localized swelling, mass and lump, neck, E11.3393 - Type 2 diabetes mellitus with moderate nonproliferative diabetic retinopathy without macular edema, bilateral, Z21 - Asymptomatic human immunodeficiency virus [HIV] infection status Complete Blood Count Auto Diff 05/26/25 E11.9 - Type 2 diabetes mellitus without complications, Z79.4 - computer terminal operator (current) use of insulin, R22.1 - Localized swelling, mass and lump, neck, E11.3393 - Type 2 diabetes mellitus with moderate nonproliferative diabetic retinopathy without macular edema, bilateral, Z21 - Asymptomatic human immunodeficiency virus [HIV] infection status Hemoglobin A1c 05/26/25 E11.9 - Type 2 diabetes mellitus without complications, Z79.4 - alf (current) use of insulin, R22.1 - Localized swelling, mass and lump, neck, E11.3393 - Type 2 diabetes mellitus with moderate nonproliferative diabetic retinopathy without macular edema, bilateral, Z21 - Asymptomatic human immunodeficiency virus [HIV] infection status Medications: New multivitamin,tx-minerals 1 tab PO DAILY 90 tabs 3RF
--- OUTSIDE RECORDS SUMMARY | 2025-05-23 15:36 | XMS_ITS | Clinical Summary ---
Author Organization [employer] Address [address] [facility] [address] [place] [address] Care Team Providers Care Blender Laborer Name Role Phone Unavailable Primary Care Provider Unavailabl e Encounters Date Type Department Care Team Description 05/17/2025 Telephone [facility] [address] [place], [place] [phone] Sowmya Ferro MD 05/16/2025 Telephone [facility] [address], [place] [phone] Jessica Rodriguez 04/12/2025 Telephone [facility] [address], [place] [phone] Jessica Rodriguez 03/01/2025 Travel from Last 3 Months Social History Tobacco Use Types Packs/Day Years Used Date Smoking Tobacco: Never Assessed Sex and Gender Information Value Date Recorded Sex Assigned at Male 03/10/2025 10:55 AM EDT Legal Sex Male 3:17 PM EDT Gender Identity Male 03/10/2025 10:55 AM EDT Sexual Orientation Straight 03/10/2025 10 :55 AM EDT Plan of Treatment Health Maintenance Due Date Last Done Comments CT Colonography 1963 Colonoscopy 1963 Colorectal Cancer Screening 1963 Depression Screening 1963 FIT DNA/Cologuard 1963 FIT 1963 FOBT 1963 HIV Screening 1963 Lipid Panel 1963 SDOH Screening 1963 Sigmoidoscopy 1963 Disability Screening 1963 Alcohol/Substance Use Screening 1975 Tobacco Screening 1975 Hepatitis C Screening 1981 DTaP/Tdap/Td Vaccines (1 - Tdap) 1982 Pneumococcal Vaccine: 50+ Ye ars (1 of 1 - PCV) 2013 Zoster Vaccines (1 of 2) 2013 COVID-19 Vaccine (2023-2 5 season) 2024 Influenza Vaccine (#1) 2025 RSV Patients and Pa tients Aged 60 years or older (1 - 1-dose 75+ series) 2038 HIB Vaccines Aged Out No longer eligi ble based on patient's age to complete this topic HPV Vaccines Aged Out No longer eligi ble based on patient's age to complete this topic Hepatitis A Vaccines Aged Out No long er eligible based on patient's age to complete this topic Hepatitis B Vaccines Aged Out No long er eligible based on patient's age to complete this topic IPV Vaccines Aged Out No longer eligi ble based on patient's age to complete this topic Meningococcal B Vaccine Aged Out No l onger eligible based on patient's age to complete this topic Meningococcal Vaccine Aged Out No heath mary eligible based on patient's age to complete this topic RSV under 20 months Aged Out No longe r eligible based on patient's age to complete this topic Rotavirus Vaccines Aged Out No longer eligible based on patient's age to complete this topic
== END 2025-05-23 17:05 | disposition home or self-care (01) ==
LOC: HO.HMCH 15:06
DX: E78.2 Mixed hyperlipidemia (principal); R19.5 Other fecal abnormalities

== ENCOUNTER → 2025-05-23 15:05 | Outpatient (BNVA) | payer OTHER, SELFPAY | DX: E78.2 Mixed hyperlipidemia (principal); E11.3393 Type 2 diabetes mellitus with moderate nonproliferative diabetic retinopathy without macular edema, bilateral; R19.5 Other fecal abnormalities; R22.1 Localized swelling, mass and lump, neck; Z21 Asymptomatic human immunodeficiency virus [HIV] infection status; Z79.4 Long term (current) use of insulin | CPT/HCPCS: 99212 ==

== ENCOUNTER 2025-05-26 10:47 | Outpatient (REF) | payer OTHER, SELFPAY ==
--- OUTSIDE RECORDS SUMMARY | 2025-05-26 10:50 | XMS_ITS | Clinical Summary ---
Author Organization [employer] Address [address] [facility] [address] [place] [address] Care Team Providers Care Bad Credit Collector Name Role Phone Unavailable Primary Care Provider Unavailabl e Encounters Date Type Department Care Team Description 05/17/2025 Telephone [facility] [address] [place], [place] [phone] Sowmya Ferro MD 05/16/2025 Telephone [facility] [address] [place], [place] [phone] Jessica Rodriguez 04/12/2025 Telephone [facility] [address] [place], [place] [phone] Jessica Rodriguez 03/01/2025 Travel from Last 3 [...]
[2025-05-26 11:00] LABS: MANUAL DIFF FLAG NO
[2025-05-26 12:02] LABS: Appearance Urine Clear; Glucose Urine UA Negative (Negative); PH 6.5 (5.0-9.0); Specific Gravity - Urine 1.010 (1.005-1.025)
[2025-05-26 12:19] LABS: Hematocrit 43.4 % (42.0-52.0); Hemoglobin 15.1 g/dl (14.0-18.0); Imm Gran Abs Auto 0.01 X10*3/uL (0.00-0.03); Imm Gran Pct Auto 0.2 % (0.0-0.4); Lymphocytes Absolute Auto 1.6 X10*3/uL (1.2-4.9); Mean Corpuscular HGB Conc 34.8 g/dl (31.0-36.0); Mean Corpuscular Hemoglobin 30.3 pg (27.0-33.0); Mean Corpuscular Volume 87.0 fL (80.0-98.0); NRBC Abs Auto 0.000 X10*3/uL (0.0-0.012); NRBC Pct Auto 0.0 /100WBC (0.0-0.2); Platelet Count 187 X10*3/uL (160-400); Red Blood Count 4.99 X10*6/uL (4.60-5.80); White Blood Count 5.5 X10*3/uL (4.8-10.8)
[2025-05-26 12:26] LABS: Hemoglobin A1C 225.4362 umol/L; Total Hemoglobin (HGBA1C) 3976.8585 umol/L
[2025-05-26 12:51] LABS: Alanine Aminotransferase 16 U/L (0-40); Albumin Level 4.2 g/dL (3.5-5.0); Alkaline Phosphatase 87 U/L (39-117); Anion Gap 8 (12-20); Aspartate Amino Transferase 54 U/L (5-37); Blood Urea Nitrogen 12 mg/dL (9-16); Calcium 8.9 mg/dL (8.4-10.2); Carbon Dioxide 28 mmol/L (22-29); Chloride 106 mmol/L (96-108); Cholesterol 164 mg/dL (<200); Estimated Glomerular Filt Rate > 60; HDL Cholesterol 33 mg/dL (>40); Potassium 3.9 mmol/L (3.3-5.1); Sodium 138 mmol/L (135-145); Total Protein 6.6 g/dL (6.5-8.0); Triglycerides 645 mg/dL (<150)
== END 2025-05-26 10:48 | disposition home or self-care (01) ==
LOC: HO.LAB 10:47
DX: E11.3393 Type 2 diabetes mellitus with moderate nonproliferative diabetic retinopathy without macular edema, bilateral (principal); R22.1 Localized swelling, mass and lump, neck; Z21 Asymptomatic human immunodeficiency virus [HIV] infection status; Z79.4 Long term (current) use of insulin
CPT/HCPCS: 36415; 80053; 80061; 81003; 82306; 83036; 85025

== ENCOUNTER 2025-06-02 15:07 | Outpatient (AMB) | payer OTHER, SELFPAY ==
--- OUTSIDE RECORDS SUMMARY | 2025-06-02 15:10 | XMS_ITS | Clinical Summary ---
Author Organization [employer] Address [address] [facility] [address] [place] [address] Care Team Providers Care Inseamer Name Role Phone Unavailable Primary Care Provider Unavailabl e Encounters Date Type Department Care Team Description 05/17/2025 Telephone [facility] [address] [place], [place] [phone] Sowmya Ferro MD 05/16/2025 Telephone [facility] [address], [place] [phone] Jessica Rodriguez 04/12/2025 Telephone [facility] [address], [place] [phone] Jessica Rodriguez from Last 3 Months Social History Tobacco [...]
--- NOTE | 2025-06-02 15:13 | A.OFFPC_ITS ---
Vital Signs 06/02/25 15:14 Height 5 ft 6 in Weight 137 lb 2 oz BMI 22.1 BP 126/68 Blood Pressure Location Lt brachial Position Sitting Respiration 18 Pulse 80 Pulse Source Pulse Oximeter Temp 97 F Temp Source Temporal Artery Scan Pulse Oximetry (%) 98 Oxygen Delivery Method Room Air Intake Visit Reasons: DM/hiv/anxiety Program Technician Required: Yes Program Technician Language: Blocker Hand Name: [id number] Accompanied by: Self / Same As Patient Allergies No Known Allergies Allergy (Verified 06/02/25 15:32) Medication List - Last Reconciled 06/03/25 by JANN Ann acarbose 50 mg PO TID buspirone 10 mg PO DAILY buspirone mg PO cholecalciferol (vitamin D3) 50 mcg PO DAILY clonazepam 1 mg PO TID PRN [id number] 500 mg (Bio-Immunex) 1 cap PO BID emtricitabine-tenofovir alafen 200-25 mg (Descovy) 1 tab PO DAILY 30 days emtricitabine-tenofovir alafen 200-25 mg (Descovy) 1 tab PO DAILY gemfibrozil 600 mg PO DAILY insulin glargine (Lantus U-100 Insulin) 15 units (0.15 mL) subcut QPM 30 days linagliptin-metformin 2.5-500 mg (Jentadueto) 1 tab PO BID metformin 500 mg PO BID multivitamin,tx-minerals 1 tab PO DAILY omega 3-tqb-boo-fish oil 1,000 (120-180) mg (Fish Oil) 1 cap PO TID omega-3 fatty acids 1,000 mg PO DAILY raltegravir 400 mg PO BID 30 days raltegravir (Isentress) 400 mg PO BID 3 months sertraline 50 mg PO DAILY trazodone mg PO BEDTIME PRN Tobacco use date assessed: 06/02/25 Dental Screening Dental Screen Date: 06/02/25 Did you have a dental visit in the last 12 months?: Yes Did you have a dental problem in the last 6 months where you did not have access to dental care?: No Was dental information given to patient?: Patient has dentist HPI DM/hiv/anxiety HPI Details The patient is a 60-year-old male presenting with hypertriglyceridemia and elevated liver enzymes. The hypertriglyceridemia was noted to be significantly high, impacting the ability to calculate LDL cholesterol levels. The patient was previously prescribed fenofibrate to manage triglyceride levels, but discontinued it due to adverse gastrointestinal effects. The patient reported that upon cessation of the medication, the adverse effects resolved. The liver enzymes were found to be slightly elevated, and the patient was advised to avoid alcohol and Tylenol to prevent further liver stress. The patient reports using Tylenol to aid sleep, which may contribute to the liver enzyme elevation. The patient also presented with hyperglycemia, with a recent fasting glucose level of 7.3, which is higher than the previous level of 6.3. The patient was encouraged to improve dietary habits to manage glucose levels more effectively. The patient will be purchasing an immune pill from [employer] since his insurance we will not cover Bio-Immunex. [facility] Medical History (Updated 06/03/25 @ 19:58 by JANN Ann) Depression Anxiety HIV (human immunodeficiency virus infection) Diabetes mellitus without complication, with long-term current use of insulin Diabetic retinopathy Surgical History H/O hemorrhoidectomy History of hernia surgery Hx of cholecystectomy Family History Mother COPD (chronic obstructive pulmonary disease) Father Diabetes Alzheimer dementia Blindness Other FH: mental illness Social History Household Members: Family Household Members Other:: Mother and sister Housing: House Are you a primary care aid to a significant other at home: Yes Alcohol intake: never Patient Tobacco Use Status: Former Tobacco user Tobacco use type: Cigarette e-Cigarette/Vaping Use: Never Used Substance Use Type: Marijuana service: No Current occupational status: employed Current occupation: [employer] Cognitive needs: No Hearing needs: No Vision needs: Yes (Glasses) Questionnaire PHQ-9 Over the last 2 weeks, how often have you been bothered by any of the following problems? 1. Little interest or pleasure in doing things: several days 2. Feeling down, depressed, or hopeless: several days 3. Trouble falling or staying asleep, or sleeping too much: several days 4. Feeling tired or having little energy: several days 5. Poor appetite or overeating: several days 6. Feeling bad about yourself - or that you are a failure or have let yourself or your family down: several days 7. Trouble concentrating on things, such as reading the newspaper or watching television: several days 8. Moving or speaking so slowly that other people could have noticed. Or the opposite - being so fidgety or restless that you have been moving around a lot more than usual: several days 9. Thoughts that you would be better off or of hurting yourself in some way: not at all Total score: 8 Depression Screening Interpretation: Positive Depression Screening Done: Yes Source: Developed by Drs. Paulino Nunez, Enedina Morales, Ashvin Mascorro and colleagues, with an educational alysia from [employer]. Thrive Questionnaire Date Thrive assessed: 06/02/25 I am a: Patient What is your living situation today?: I have a steady place to live Within the past 12 months, did the food you bought not last and you didn't have the money to get more?: Sometimes True Within the past 12 months, did you worry whether your food would run out before you got money to buy more?: Sometimes True Do you have trouble paying for medicines?: No Do you have trouble getting transportation to medical appointments?: I choose not to answer this question Do you have trouble paying your heating and electricity bill?: I choose not to answer this question Do you have trouble taking care of your child, family member or friend?: No Do you have trouble with day-to-day activities such as bathing, preparing meals, shopping, managing finances, etc.?: No Are you currently unemployed and looking for a job?: I choose not to answer this question Are you interested in more education?: Yes Please select the resources that you would like help with: None Currently or been in a relationship where the following occur: I choose not to answer THRIVE Score: 2 AUDIT C Alcohol Use Questionnaire (AUDIT-C) 1. How often do you have a drink containing alcohol?: Never Total Score: 0 JENN-7 AMB Questionnaire JENN-7 Date JENN - 7 assessed: 06/02/25 Source: Developed by Drs. Paulino Nunez, Ashvin Pabon and colleagues, with an educational alysia from [employer] Review of Systems Const Denies body aches, Denies chills, Denies fever(s), Denies headache(s) and Denies poor appetite Eyes Reports no additional complaints ENT Denies dysphagia, Denies dizziness, Denies headache(s) and Denies odynophagia Card Denies chest pain, Denies syncope, Denies edema, Denies irregular heart rhythm, Denies lightheadedness and Denies dyspnea Resp Denies cough and Denies dyspnea GI Denies abdominal pain, Denies tenesmus, Denies constipation, Denies dysphagia, Denies diarrhea, Denies nausea, Denies odynophagia and Denies vomiting Reports no additional complaints Musc Reports no additional complaints and Denies abnormal gait Skin/Breast Reports system reviewed and no additional complaints, except as documented Neuro Denies abnormal gait, Denies dizziness, Denies syncope and Denies headache(s) Psych Reports no additional complaints Physical exam (Primary Care) Vital Signs: Last Vital Signs Temp 97 F 06/02/25 15:14 Pulse 80 06/02/25 15:14 Resp 18 06/02/25 15:14 BP 126/68 06/02/25 15:14 Pulse Ox 98 06/02/25 15:14 Oxygen Delivery Method Room Air 06/02/25 15:14 BMI result Body Mass Index 22.1 Tobacco/Smoking Status: Tobacco use Status Tobacco use date assessed 06/02/25 06/02/25 15:21 Patient Tobacco Use Status Former Tobacco user 06/02/25 15:21 Tobacco use type Cigarette 06/02/25 15:21 e-Cigarette/Vaping Use Never Used 06/02/25 15:21 PHQ-9: PHQ-9 Score PHQ-9: Total score 8 06/02/25 15:35 Depression Screening Interpretation: Positive Thrive Assessment: Date of Thrive Assessment Date Thrive assessed 06/02/25 06/02/25 15:21 Currently or been in a relationship where the following occur: I choose not to answer Const General: cooperative, healthy appearing, comfortable and no acute distress Orientation/consciousness: patient oriented x3 HENMT Head: Yes normocephalic Ears: hearing grossly normal bilaterally General nose exam: Normal external nose present Eyes General: appearance normal, both eyes and all related structures Conjunctivae: conjunctivae normal Neck Neck: Yes full ROM and Yes no lymphadenopathy Resp Effort & Inspection: normal respiratory effort Auscultation: clear to auscultation bilaterally, no crackles, no rales, no rhonchi and no wheezes Cardio Rate: regular rate Rhythm: regular rhythm Skin General skin exam: no rashes or lesions noted Neuro General: patient oriented x3 Gait exam (Neuro): Normal gait present Extrem General: Yes normal to inspection, Yes full ROM and No edema Psych Affect: normal affect Attitude: cooperative Insight: Good insight present (Psych) Judgement: Good judgement present (Psych) Results Reviewed Results Reviewed: Laboratory Tests 05/26/25 05/26/25 10:56 10:59 WBC 5.5 RBC 4.99 Hgb 15.1 Hct 43.4 MCV 87.0 MCH 30.3 MCHC 34.8 RDW 13.2 Plt Count 187 MPV 10.2 Immature Gran % (Auto) 0.2 Neut % (Auto) 58.3 Sodium 138 Potassium 3.9 Chloride 106 Carbon Dioxide 28 Anion Gap 8 L BUN 12 Creatinine 0.73 Estimated GFR > 60 Fasting Glucose 161 H Hemoglobin A1c % 7.3 H Calcium 8.9 Total Bilirubin 0.1 AST 54 H ALT 16 Alkaline Phosphatase 87 Total Protein 6.6 Albumin 4.2 Triglycerides 645 H Cholesterol 164 HDL Cholesterol 33 L 25-OH Vitamin D Total 35.4 Urine Color Yellow Urine Appearance Clear Urine pH 6.5 Ur Specific [place] 1.010 Urine Protein Negative Urine Glucose (UA) Negative Urine Ketones Negative Urine Blood Negative Urine Nitrite Negative Ur Leukocyte Esterase Negative Coding Level of Care Code Est Pt Level 4 (40019) Diagnoses Type 2 diabetes mellitus without complication, with long-term current use of insulin E11.9; Z79.4 Diabetes mellitus type: type 2 Vitamin D deficiency E55.9 Mixed hyperlipidemia E78.2 Hyperlipidemia type: mixed hyperlipidemia Asymptomatic HIV infection, with no history of HIV-related illness Z21 HIV symptom status: asymptomatic, with no history of HIV-related illness Anxiety F41.9 Depression, unspecified depression type F32.A Depression Type: unspecified Time Spent (min) 41 Assessment & Plan Assessment & Plan (1) Diabetes mellitus without complication, with long-term current use of insulin: Code(s): E11.9 - Type 2 diabetes mellitus without complications; Z79.4 - termite exterminator helper (current) use of insulin Category: Medical Qualifiers: Diabetes mellitus type: type 2 Qualified Code(s): E11.9 - Type 2 diabetes mellitus without complications; Z79.4 - FPC (current) use of insulin Plan: The patient A1c is 7.3% increased from 6.3% 3 months ago. Goal is less than 7% Reinforced low sugar/carbohydrate diet Continue Lantus 15 units at nighttime and linaglipton-mefformin 2.5-500mg BID We will recheck fasting glucose and A1c in 3 months (2) Vitamin D deficiency: Code(s): E55.9 - Vitamin D deficiency, unspecified Category: Medical Plan: Continue cholecalciferol 50 mcg daily (3) HLD (hyperlipidemia): Code(s): E78.5 - Hyperlipidemia, unspecified Category: Medical Qualifiers: Hyperlipidemia type: mixed hyperlipidemia Qualified Code(s): E78.2 - Mixed hyperlipidemia Plan: The patient was started on fenofibrate 54 mg daily. He stopped this medication after taking it for a couple of days due to loose stool and bowel incontinence. Triglycerides went from 309 to 645 within three-month. Discussed lifestyle modifications and activity as tolerated Started the patient on gemfibrozil 600 mg daily. If the patient tolerate this medication we will increase this to 2 times a day. CONTINUE FISH OIL We will recheck lipid panel in 3 months (4) HIV (human immunodeficiency virus infection): Comment: He is doing well with viral load undetectable. Code(s): Z21 - Asymptomatic human immunodeficiency virus [HIV] infection status Category: Medical Qualifiers: HIV symptom status: asymptomatic, with no history of HIV-related illness Qualified Code(s): Z21 - Asymptomatic human immunodeficiency virus [HIV] infection status Plan: Patient virus has been undetectable Continue emtricitabine-tenofovir alafen 200-25 mg daily. Insurance not covering [id number]. The patient will be getting a [employer] brand immue tabs instead. Follow up with Infectious Disease as scheduled (5) Anxiety: Code(s): F41.9 - Anxiety disorder, unspecified Category: Medical Plan: Encouraged CBT Continue Buspirone 15 mg daily, sertraline 50 mg daily, and clonazepam 1 mg TID prn Follow up with Psychiatry as scheduled (6) Depression: Code(s): F32.A - Depression, unspecified Category: Medical Qualifiers: Depression Type: unspecified Qualified Code(s): F32.A - Depression, unspecified Plan: Continue sertraline 50 mg daily Follow up with Psychiatry as scheduled Plan The plan for managing hypertriglyceridemia includes trying a new medication at a low dose to assess tolerance, given the previous adverse effects experienced by the patient. The patient is advised to reduce intake of processed foods and sweets to help manage triglyceride levels. For the elevated liver enzymes, the patient is instructed to avoid alcohol and Tylenol to prevent further liver stress. The liver enzymes will be rechecked in three months to monitor any changes. Regarding hyperglycemia, the patient is encouraged to improve dietary habits to lower glucose levels. Patient was informed and verbally consented to the use of an ambient scribe for clinic note documentation during this visit. Orders: Orders Comprehensive [place]. Panel Fast 3 Months - Type 2 diabetes mellitus with moderate nonproliferative diabetic retinopathy without macular edema, bilateral, E11.9 - Type 2 diabetes mellitus without complications, E78.5 - Hyperlipidemia, unspecified, Z21 - Asymptomatic human immunodeficiency virus [HIV] infection status, Z79.4 - FPC (current) use of insulin TSH reflex Free T4 3 Months - Type 2 diabetes mellitus with moderate nonproliferative diabetic retinopathy without macular edema, bilateral, E11.9 - Type 2 diabetes mellitus without complications, E78.5 - Hyperlipidemia, unspecified, Z21 - Asymptomatic human immunodeficiency virus [HIV] infection status, Z79.4 - termite exterminator helper (current) use of insulin UA CC w/rflx Micro + Cult 3 Months - Type 2 diabetes mellitus with moderate nonproliferative diabetic retinopathy without macular edema, bilateral, E11.9 - Type 2 diabetes mellitus without complications, E78.5 - Hyperlipidemia, unspecified, Z21 - Asymptomatic human immunodeficiency virus [HIV] infection status, Z79.4 - FPC (current) use of insulin Lipid Panel 3 Months - Type 2 diabetes mellitus with moderate nonproliferative diabetic retinopathy without macular edema, bilateral, E11.9 - Type 2 diabetes mellitus without complications, E78.5 - Hyperlipidemia, unspecified, Z21 - Asymptomatic human immunodeficiency virus [HIV] infection status, Z79.4 - FPC (current) use of insulin Vitamin D 25-OH Total 3 Months - Type 2 diabetes mellitus with mo derate nonproliferative diabetic retinopathy without macular edema, bilateral, E11.9 - Type 2 diabetes mellitus without complications, E55.9 - Vitamin D deficiency, unspecified, E78.5 - Hyperlipidemia, unspecified, Z21 - Asymptomatic human immunodeficiency virus [HIV] infection status, 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
[2025-06-02 15:14] VITALS: BP 126/68; PULSE 80; RESP 18; TEMP 36.1; O2SAT 98; BMI 22.1
== END 2025-06-02 15:56 | disposition home or self-care (01) ==
LOC: HO.HMCH 15:08
DX: E11.9 Type 2 diabetes mellitus without complications (principal); Z79.4 Long term (current) use of insulin; Z21 Asymptomatic human immunodeficiency virus [HIV] infection status; E55.9 Vitamin D deficiency, unspecified; E78.2 Mixed hyperlipidemia; F41.9 Anxiety disorder, unspecified; F32.A Depression, unspecified

== ENCOUNTER → 2025-06-02 15:07 | Outpatient (BNVA) | payer OTHER, SELFPAY | DX: E78.1 Pure hyperglyceridemia (principal); E11.9 Type 2 diabetes mellitus without complications; E55.9 Vitamin D deficiency, unspecified; E78.2 Mixed hyperlipidemia; F41.9 Anxiety disorder, unspecified; F32.A Depression, unspecified; Z21 Asymptomatic human immunodeficiency virus [HIV] infection status; Z79.4 Long term (current) use of insulin | CPT/HCPCS: 99212 ==

== ENCOUNTER 2025-07-16 18:28 | Emergency (ER) | payer OTHER, SELFPAY ==
[2025-07-16 18:30] VITALS: BP 138/65; PULSE 82; RESP 18; TEMP 36.4; O2SAT 98; BMI 23.7
--- NOTE | 2025-07-16 18:30 | ED.EYEPROB ---
HPI - Eye Problem General Chief complaint: Eye Problems Stated complaint: put wrong drops in his eyes Time Seen by Provider: 07/16/25 20:20 Source: patient Mode of arrival: ambulatory Limitations: no limitations History of Present Illness ED Provider: CASSANDRA CARDONA PA-C HPI Narrative: 60 year old male with pmhx significant for HIV, DM, HLD, anxiety, depression presents to the ED today for evaluation of bilateral eye irritation x2 hours. Patient states that he went to put in his daily eye drops however grabbed the wrong bottle and instilled antifungal nail drops into both of his eyes on accident. Reports immediate blurred vision and eye irritation. He reports washing his eyes out with water and presenting to the ED for further evaluation. On my interview, he states that all symptoms have resolved and he would like to leave to go home and finish his dinner. Denies any blurred vision, vision loss, FB sensation, etc. He wears glasses, no contacts. Related Data Home Medications ?Medication ?Instructions ?Recorded ?Confirmed buspirone 10 mg tablet 10 mg PO DAILY 02/17/25 06/03/25 buspirone 5 mg tablet mg PO 02/17/25 06/03/25 clonazepam 1 mg tablet 1 mg PO TID PRN 02/17/25 06/03/25 sertraline 50 mg tablet 50 mg PO DAILY 02/17/25 06/03/25 trazodone 150 mg tablet mg PO BEDTIME PRN 02/17/25 06/03/25 omega-3 fatty acids 1,000 mg 1,000 mg PO DAILY 03/01/25 06/03/25 capsule acarbose 50 mg tablet 50 mg PO TID 05/23/25 06/03/25 Previous Rx's ?Medication ?Instructions ?Recorded insulin glargine 100 unit/mL 15 unit (0.15 mL) subcut QPM 30 04/24/23 subcutaneous solution (Lantus days #4.5 mL U-100 Insulin) emtricitabine 200 mg-tenofovir 1 tab PO DAILY 30 days #30 tabs 03/01/25 alafenamide fumarate 25 mg tablet (Descovy) raltegravir 400 mg tablet 400 mg PO BID 30 days #60 tabs 03/01/25 [id number] 500 1 cap PO BID #120 caps 05/24/25 mg capsule (Bio-Immunex) omega 4-yxz-bnu-fish oil 1,000 mg 1 cap PO TID #180 caps 03/11/25 (120 mg-180 mg) capsule (Fish Oil) emtricitabine 200 mg-tenofovir 1 tab PO DAILY #90 tabs 03/23/25 alafenamide fumarate 25 mg tablet (Descovy) linagliptin 2.5 mg-metformin 500 1 tab PO BID #90 tabs 03/23/25 mg tablet (Jentadueto) raltegravir 400 mg tablet 400 mg PO BID 3 months #180 tabs 03/23/25 (Isentress) metformin 500 mg tablet 500 mg PO BID #10 tabs 03/25/25 cholecalciferol (vitamin D3) 50 50 mcg PO DAILY #90 caps 04/06/25 mcg (2,000 unit) capsule multivitamin,tx-minerals 1 tab PO DAILY #90 tabs 05/23/25 gemfibrozil 600 mg tablet 600 mg PO DAILY #90 tabs 06/02/25 Allergies Allergy/AdvReac Type Severity Reaction Status Date / Time No Known Allergies Allergy Verified 07/16/25 18:30 Review of Systems Review of Systems: Yes all other systems are reviewed and are negative PMFSH Past Medical History Attestation statement: The following information was validated with the patient. 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 Alcohol intake: never Patient Tobacco Use Status: Former Tobacco user Tobacco use type: Cigarette Smoked in Last 30 Days: No e-Cigarette/Vaping Use: Never Used Use of substances other than those prescribed or required for medical reasons: No Substance Use Type: Marijuana Advance Directives: No Advance Directives Information Provided: Yes Do you have a plan to hurt others: No Plan service: No Current occupational status: employed Current occupation: [employer]- [employer] Cognitive needs: No Hearing needs: No Vision needs: Yes (Glasses) Physical Exam Vital Signs: Vital Signs: Last Vital Signs Temp 97.8 F 07/16/25 20:28 Pulse 78 07/16/25 20:28 Resp 16 07/16/25 20:28 BP 122/77 07/16/25 20:28 Pulse Ox 98 07/16/25 20:28 O2 Del Method Room Air 07/16/25 20:28 BMI result Body Mass Index 23.7 vital signs stable General: Well appearing, in no acute distress. Skin: Warm, dry, intact. No rashes or lesions. Head: Normocephalic, atraumatic. EENT: Hearing is intact b/l. Moist mucous membranes.?No periorbital swelling. No enophthalmous or exopthalmous. EOMs intact without pain or entrapment. PERRLA. No photophobia. No obvious foreign body or abrasion. No conjunctival injection or chemosis. No hazy cornea. Visual acuity 20/30 uncorrected b/l. 20/20 corrected b/l. Cardiac: Chest wall symmetric. RRR Lungs: Normal respiratory effort without accessory muscle use Ext: Upper and lower extremities atraumatic, without tenderness, deformity, swelling or erythema Neuro: AOx3. Normal speech. Ambulating with steady gait. Course Course Course Narrative: Jyotsna Starkey FREIGHT AGENT 07/16 1830 This is a rapid medical exam. Deferred additional HPI, ROS, PE to primary provider. 60 yo male with PMH of HIV, DM, HLD here with complaints of eye burning/blurriness after putting antifungal liquid in his eyes instead of his eye drops on accident. Uses glasses. Will need eye exam. Visual acuity ordered. VSS Medical Decision Making Medical Decision Making MDM Narrative: 60 year old male with pmhx significant for HIV, DM, HLD, anxiety, depression presents to the ED today for evaluation of bilateral eye irritation x2 hours. vital signs stable. he is well appearing, playing on his phone on my entrance into room. on exam, No periorbital swelling. No enophthalmous or exopthalmous. EOMs intact without pain or entrapment. PERRLA. No photophobia. No obvious foreign body or abrasion. No conjunctival injection or chemosis. No hazy cornea. Visual acuity 20/30 uncorrected b/l. 20/20 corrected b/l. Differential diagnosis includes eye irrtation. low suspicion for conjunctivitis, corneal fb, corneal abrasion. Unlikely preseptal or orbital cellulitis, acute angle closure glaucoma, iritis, keratitis, scleritis, uveitis, herpes ophthalmicus. Plan for [facility], disposition. Patient declining fluorescein / tetracaine evaluation, requesting to be discharged home as symptoms have resolved. Differential Diagnosis Differential Diagnoses: The differential diagnosis associated with the presentation includes as above. Admission/Observation not indicated. Social Determinants Patient?s care significantly limited by Social Determinants of Health including: Other Social Determinant of Health Critical Care Time Critical Care Time Critical Care Time: No Discharge Plan Discharge Clinical Impression: Eye irritation Patient Disposition: Home, Self-Care Additional Instructions: You were evaluated in the ED today after putting the wrong drops in your eyes. Your symptoms have resolved. Your exam is reassuring. Please check your eye drop bottle prior to putting anything into your eyes. Follow up with PCP as needed. Return with any new or worsening symptoms. In the case of an emerency call 911. Prescriptions: No Action Bio-Immunex 500 mg capsule 1 cap PO BID Qty: 120 3RF omega 9-viu-gak-fish oil [Fish Oil] 1,000 (120-180) mg capsule 1 cap PO TID Qty: 180 3RF Descovy 200-25 mg tablet 1 tab PO DAILY Qty: 90 3RF Jentadueto 2.5-500 mg tablet 1 tab PO BID Qty: 90 3RF Isentress 400 mg tablet 400 mg PO BID 90 Days Qty: 180 3RF metformin 500 mg tablet 500 mg PO BID Qty: 10 0RF cholecalciferol (vitamin D3) 50 mcg (2,000 unit) capsule 50 mcg PO DAILY Qty: 90 3RF insulin glargine [Lantus U-100 Insulin] 100 unit/mL solution 15 unit subcut QPM 30 Days Qty: 4.5 3RF trazodone 150 mg tablet PO BEDTIME PRN buspirone 10 mg tablet 10 mg PO DAILY buspirone 5 mg tablet PO sertraline 50 mg tablet 50 mg PO DAILY clonazepam 1 mg tablet 1 mg PO TID PRN gemfibrozil 600 mg tablet 600 mg PO DAILY Qty: 90 2RF omega-3 fatty acids 1,000 mg capsule 1,000 mg PO DAILY Descovy 200-25 mg tablet 1 tab PO DAILY 30 Days Qty: 30 3RF raltegravir 400 mg tablet 400 mg PO BID 30 Days Qty: 60 3RF acarbose 50 mg tablet 50 mg PO TID multivitamin,tx-minerals Tablet 1 tab PO DAILY Qty: 90 3RF Referrals: Arron Warner FNP-C [Primary Care Provider, Internal Medicine] Interventions: ED Discharge Assessment Last Done: 07/16/25 20:28 Discharge Date/Time: 07/16/25 20:29 Print Language: Kazakh
--- OUTSIDE RECORDS SUMMARY | 2025-07-16 19:48 | XMS_ITS | Clinical Summary ---
Author Organization [employer] Address [address] [place] [address] Care Team Providers Care Gastroenterology Teacher Name Role Phone Unavailable Primary Care Provider Unavailabl e Encounters Date Type Department Care Team Description 05/17/[address] [facility] [address] [place] [address] Sowmya Ferro MD 05/16/[address] [facility] [address] [place] [address] Jessica Rodriguez from Last 3 Months Social [...] Vaccines (1 of 2) 2013 COVID-19 Vaccine ( - 2023-2 5 season) 2025 Influenza Vaccine (#1) 2025 RSV Patients and [...]
[2025-07-16 19:51] VITALS: RESP 16
[2025-07-16 20:28] VITALS: BP 122/77; PULSE 78; RESP 16; TEMP 36.6; O2SAT 98
== END 2025-07-16 20:29 | disposition home or self-care (01) ==
PROVIDERS: Emergency Provider Emergency Medicine Emergency Medical Services
DX: H57.13 Ocular pain, bilateral (principal); Z79.899 Other long term (current) drug therapy; E11.9 Type 2 diabetes mellitus without complications; Z79.4 Long term (current) use of insulin
CPT/HCPCS: 99283; 99284